=== PATIENT | male | born 1985 | race African-American/Black ===

== ENCOUNTER 2017-08-13 12:29 | Emergency (ER) | payer SELFPAY ==
--- NOTE | 2017-08-13 13:23 | EKG REPORT ---
SEVERITY:- NORMAL ECG - SINUS RHYTHM : Confirmed by: Rivera Torres 13-Aug-2017 13:22:42
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
== END 2017-08-13 13:39 | disposition home or self-care (01) ==
LOC: ER 12:29
DX: S29.011A Strain of muscle and tendon of front wall of thorax, initial encounter (principal); X58.XXXA Exposure to other specified factors, initial encounter; R07.89 Other chest pain; R20.0 Anesthesia of skin; R20.2 Paresthesia of skin; F17.200 Nicotine dependence, unspecified, uncomplicated; Z88.8 Allergy status to other drugs, medicaments and biological substances; Z91.018 Allergy to other foods; Z82.49 Family history of ischemic heart disease and other diseases of the circulatory system
CPT/HCPCS: 93005; 93010; 99284